=== PATIENT | female | born 1935 | race Caucasian/White ===

== ENCOUNTER 2016-11-11 02:19 | Inpatient (IN) | payer OTHER, MEDICARE ==
[2016-11-11] MEDS ORDERED: QUET1TAB7 PO (04:59)
[2016-11-11] MEDS ORDERED: AMLO10TA2 PO (04:59)
[2016-11-11] MEDS ORDERED: ASPI1TAB69 PO (04:59)
[2016-11-11] MEDS ORDERED: VALS1TAB70 PO (04:59)
[2016-11-11] MEDS ORDERED: PRIL20CA9 PO (04:59)
[2016-11-11] MEDS ORDERED: GABA100C4 PO (04:59)
[2016-11-11] MEDS ORDERED: MAGNESIUM HYDROXIDE SUSP 30 ML CUP PO PRN (06:00)
[2016-11-11] MEDS ORDERED: ALUMINUM/MAGNESIUM/SIMETH 30 ML CUP PO PRN (06:00)
[2016-11-11] MEDS ORDERED: diphenhydrAMINE HCL 50 MG/ML VIAL IM PRN (06:00)
[2016-11-11] MEDS ORDERED: diphenhydrAMINE HCL 50 MG CAP PO PRN (06:00)
[2016-11-11] MEDS ORDERED: ACETAMINOPHEN 325 MG TAB PO PRN (06:00)
[2016-11-11 06:26] VITALS: BP 147/62; PULSE 67; RESP 16; TEMP 98.4; O2SAT 94
[2016-11-11] MEDS ORDERED: hydrOXYzine HCL 50 MG TAB PO PRN (10:45)
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
[2016-11-11] MEDS: VALSARTAN 160 MG TAB PO SCH (12:08)
[2016-11-11] MEDS: PANTOPRAZOLE SOD 20 MG DELAYED RELEASE TAB PO SCH (12:08)
[2016-11-11] MEDS: ASPIRIN EC 81 MG TABEC PO SCH (12:09)
--- NOTE | 2016-11-11 13:42 | PD.CONS ---
HPI Service [facility] Consult Requested By Psychiatric team Reason for Consult Hypertension Primary Care Physician Unknown Diagnoses: History of Present Illness This is a 81-year-old female patient is currently alert and oriented to person only therefore information gathered from patient as well as prior computerized charting. Patient is a past medical history which includes cardiac myopathy, hypertension, dementia anxiety and depression. Patient is currently an inpatient psychiatric center with been consulted for assistance with management of hypertension. Patient has been restarted on her home blood pressure medications of Norvasc 10 and valsartan 325 daily. Patient's blood pressures in except will arrange for age. Patient appears to be in no acute distress although patient the [employer] INS[employer] working with patient reported that patient had an episode of large loose watery diarrhea. Per seen a there is no evidence of bright red blood or black to the stool. Patient is unable to elaborate or give any further information regarding how long or how often she's having liquid bowel movements. Patient reports mild abdominal pain more of a cramping. Denies nausea vomiting. Patient is unable to sit tell us whether she has been on antibiotics recently. Patient also denies shortness of breath chest pain. Review of Systems Except as stated in HPI: all other systems reviewed are Neg Past Family Social History Allergies: Coded Allergies: [place] (Verified Allergy, Unknown, 11/11/16) Sulfa (Verified Allergy, Unknown, 11/11/16) Uncoded Allergies: generic brand meds (Allergy, Unknown, 11/11/16) Past Medical History cardiomyopathy, hypertension, dementia anxiety and depression. Past Surgical History Appendectomy Reported Medications Quetiapine (Quetiapine Fumarate) 25 Mg Tab 12.5 Mg PO HS Valsartan 320 Mg Tab 320 Mg PO DAILY Prilosec (Omeprazole) 20 Mg Cap 20 Mg PO DAILY Gabapentin 100 Mg Cap 100 Mg PO HS Amlodipine (Amlodipine Besylate) 10 Mg Tab 10 Mg PO DAILY Aspirin 81 Mg Tabdr 81 Mg PO DAILY Active Ordered Medications Current Medications Medications (Trade) Dose Ordered Sig/Rai Route Start Time Stop Time Status Last Admin (Atarax) 50 mg Q6H PRN PO 11/11/16 06:00 (Benadryl) 50 mg Q6H PRN PO 11/11/16 06:00 (Benadryl Inj) 50 mg Q6H PRN IM 11/11/16 06:00 (Tylenol) 650 mg Q4H PRN PO 11/11/16 06:00 (Milk Of Magnesia Liq) 30 ml DAILY PRN PO 11/11/16 06:00 (Mag-Al Plus Susp Liq) 30 ml Q6H PRN PO 11/11/16 06:00 (Atarax) 50 mg Q6H PRN PO 11/11/16 10:45 (Norvasc) 10 mg DAILY PO 11/11/16 11:00 11/11/16 12:08 (Ecotrin Ec) 81 mg DAILY PO 11/11/16 11:00 11/11/16 12:09 (Neurontin) 100 mg HS PO 11/11/16 21:00 (Protonix) 20 mg DAILY PO 11/11/16 11:00 11/11/16 12:08 (Diovan) 320 mg DAILY PO 11/11/16 11:00 11/11/16 12:08 Family History Unable to obtain due to patient's mental status Social History Lives at home with there is no report of EtOH use tobacco use or illicit drug use Physical Exam Vital Signs Vital Signs Date Time Temp Pulse Resp B/P Pulse Ox O2 Delivery O2 Flow Rate FiO2 11/11/16 06:26 98.4 67 16 147/62 94 Physical Exam GENERAL: This is a well-nourished, well-developed patient, running around inpatient psychiatric unit does appear confused SKIN: No rashes, ecchymoses or lesions. Cool and dry. HEAD: Atraumatic. Normocephalic. No temporal or scalp tenderness. EYES:Extraocular motions intact. No scleral icterus. No injection or drainage. CARDIOVASCULAR: Regular rate and rhythm without murmurs, gallops, or rubs. RESPIRATORY: Clear to auscultation. Breath sounds equal bilaterally. No wheezes , rales, or rhonchi. GASTROINTESTINAL: Abdomen soft, mildly tender to palpation generalized abdomen, nondistended. MUSCULOSKELETAL: Extremities without clubbing, cyanosis, or edema. No joint tenderness, effusion, or edema noted. No calf tenderness. Negative Homans sign bilaterally. NEUROLOGICAL: Awake and alert. Motor and sensory grossly within normal limits. 4 -5 out of 5 muscle strength in all muscle groups. Confused alert and oriented to person only Result Diagram: 11/11/16 1513 11/11/16 1513 Assessment and Plan Assessment and Plan This is a 81-year-old female patient is currently alert and oriented to person only therefore information gathered from patient as well as prior computerized charting. Patient is a past medical history which includes cardiomyopathy, hypertension, dementia anxiety and depression. Patient is currently an inpatient psychiatric center with been consulted for assistance with management of hypertension. Patient has been restarted on her home blood pressure medications of Norvasc 10 and valsartan 320 mg daily. Patient's blood pressures in except will arrange for age. Patient appears to be in no acute distress although patient the [employer] working with patient reported that patient had an episode of large loose watery diarrhea. Hypertension - stable continue patient's home Norvasc 10 mg daily and valsartan 320 mg daily Monitor blood pressure trend Diarrhea CBC, BMP, magnesium and phosphorus ordered Stool for C. difficile Alzheimer's dementia behavior disturbance- management per psychiatric team DVT prophylaxis patient is ambulatory, low risk Plan of care discussed with patient and nursing Written by Sachi Snider, acting as scribe for Dr. Marsh on 11/11/16 at 14:19. Attending Statement The documentation accurately reflects the work performed [id number] by me on at 14:19. Sachi Snider Nov 11, 2016 13:42 Adriano Gonzalez MD Nov 12, 2016 16:01
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
[2016-11-11 15:24] LABS: AUTOMATED NEUTROPHIL # 7.2 TH/MM3 (1.8-7.7); BASOPHIL # 0.1 TH/MM3 (0-0.2); BASOPHIL % 0.7 % (0.0-2.0); EOSINOPHIL # 0.1 TH/MM3 (0-0.4); EOSINOPHIL % 0.9 % (0.0-4.0); HEMO FLAGS DIFF FINAL; LYMPH % 21.1 % (9.0-44.0); LYMPHOCYTE # 2.1 TH/MM3 (1.0-4.8); MEAN CELL VOLUME 84.6 FL (80.0-100.0); MEAN CORPUSCULAR HEMOGLOBIN 28.1 PG (27.0-34.0); MEAN CORPUSCULAR HGB CONC 33.1 % (32.0-36.0); MONO % 5.6 % (0.0-8.0); NEUT % 71.7 % (16.0-70.0); PLATELET COUNT 298 TH/MM3 (150-450); WHITE BLOOD COUNT 10.1 TH/MM3 (4.0-11.0)
[2016-11-11 15:48] LABS: BICARBONATE 28.1 MEQ/L (21.0-32.0); MAGNESIUM 2.1 MG/DL (1.5-2.5); POTASSIUM 3.4 MEQ/L (3.5-5.1)
[2016-11-11] MEDS: hydrOXYzine HCL 50 MG TAB PO PRN (17:58)
[2016-11-11 18:00] VITALS: BP 161/73; PULSE 77; RESP 18; TEMP 99.3; O2SAT 100
[2016-11-11] MEDS: GABAPENTIN 100 MG CAP PO SCH ×2 (20:52→20:53)
[2016-11-11] MEDS ORDERED: HALOPERIDOL LACTATE 5 MG/ML AMP IM ONE (21:30)
[2016-11-11] MEDS ORDERED: diphenhydrAMINE HCL 50 MG/ML VIAL IM STA (21:30)
[2016-11-12 06:18] VITALS: BP 161/69; PULSE 64; RESP 16; TEMP 99.2; O2SAT 97
[2016-11-12] MEDS: VALSARTAN 160 MG TAB PO SCH (08:08)
[2016-11-12] MEDS: ASPIRIN EC 81 MG TABEC PO SCH (08:08)
[2016-11-12] MEDS: PANTOPRAZOLE SOD 20 MG DELAYED RELEASE TAB PO SCH (08:08)
[2016-11-12] MEDS ORDERED: POTASSIUM CHLORIDE 20 MEQ CONTROLLED RELEASE TAB PO ONE (16:00)
[2016-11-12] MEDS: QUEtiapine FUMARATE 25 MG TAB PO SCH ×2 (16:00→21:25)
--- NOTE | 2016-11-12 16:02 | HHI.PR ---
Objective Vitals Vital Signs Date Time Temp Pulse Resp B/P Pulse Ox O2 Delivery O2 Flow Rate FiO2 11/12/16 06:18 99.2 64 16 161/69 97 11/11/16 18:00 99.3 77 18 161/73 100 Result Diagram: 11/11/16 1513 11/11/16 1513 Objective Remarks GENERAL: This is a well-nourished, well-developed patient, running around inpatient psychiatric unit does appear confused SKIN: No rashes, ecchymoses or lesions. Cool and dry. HEAD: Atraumatic. Normocephalic. No temporal or scalp tenderness. EYES:Extraocular motions intact. No scleral icterus. No injection or drainage. CARDIOVASCULAR: Regular rate and rhythm without murmurs, gallops, or rubs. RESPIRATORY: Clear to auscultation. Breath sounds equal bilaterally. No wheezes , rales, or rhonchi. GASTROINTESTINAL: Abdomen soft, mildly tender to palpation generalized abdomen, nondistended. MUSCULOSKELETAL: Extremities without clubbing, cyanosis, or edema. No joint tenderness, effusion, or edema noted. No calf tenderness. Negative Homans sign bilaterally. NEUROLOGICAL: Awake and alert. Motor and sensory grossly within normal limits. 4 -5 out of 5 muscle strength in all muscle groups. Confused alert and oriented to person only Medications and IVs Current Medications Medications (Trade) Dose Ordered Sig/Rai Route Start Time Stop Time Status Last Admin (Atarax) 50 mg Q6H PRN PO 11/11/16 06:00 11/11/16 17:58 (Tylenol) 650 mg Q4H PRN PO 11/11/16 06:00 (Milk Of Magnesia Liq) 30 ml DAILY PRN PO 11/11/16 06:00 (Mag-Al Plus Susp Liq) 30 ml Q6H PRN PO 11/11/16 06:00 (Norvasc) 10 mg DAILY PO 11/11/16 11:00 11/12/16 08:08 (Ecotrin Ec) 81 mg DAILY PO 11/11/16 11:00 11/12/16 08:08 (Neurontin) 100 mg HS PO 11/11/16 21:00 (Protonix) 20 mg DAILY PO 11/11/16 11:00 11/12/16 08:08 (Diovan) 320 mg DAILY PO 11/11/16 11:00 11/12/16 08:08 (SEROquel) 25 mg BID@16,22 PO 11/12/16 16:00 A/P Problem List: (1) Dementia of Alzheimer's type with behavioral disturbance ICD Code: G30.8 Status: Acute Plan: Management as per psychiatry (2) Uncontrolled hypertension ICD Code: I10 Status: Acute Plan: Patient's home antihypertensive medications. On amlodipine and Valsartan. Will start on cardura 2 mg daily. (3) Diarrhea ICD Code: R19.7 Status: Acute Plan: cdiff ordered and pending (4) ARIE (acute kidney injury) ICD Code: N17.9 Status: Acute Plan: Creatinine 1.35 - no previous labs to compare. encourage po intake (5) Hypokalemia ICD Code: E87.6 Status: Acute Plan: replete and monitor. Assessment and Plan . Problem Qualifiers (1) Dementia of Alzheimer's type with behavioral disturbance: Qualified Code: G30.8 - Alzheimer's disease of other onset with behavioral disturbance Adriano Gonzalez MD Nov 12, 2016 16:01
[2016-11-12] MEDS ORDERED: GLUCAGON 1 MG/ML VIAL OTHER PRN (16:15)
[2016-11-12] MEDS ORDERED: DEXTROSE 50% IN WATER 50 ML VIAL(D50) IV PUSH PRN (16:15)
[2016-11-12] MEDS: INSULIN ASPART SUPPLEMENTAL SCALE SQ SCH (21:00)
[2016-11-12] MEDS: GABAPENTIN 100 MG CAP PO SCH (21:20)
[2016-11-12] MEDS: hydrOXYzine HCL 50 MG TAB PO PRN (21:20)
[2016-11-12 22:50] VITALS: BP 169/84; PULSE 89; RESP 16; TEMP 98.9; O2SAT 93
[2016-11-13 06:00] VITALS: BP 141/76; PULSE 104; RESP 18; TEMP 99.8; O2SAT 95
[2016-11-13] MEDS: INSULIN ASPART SUPPLEMENTAL SCALE SQ SCH ×4 (06:31→21:00)
[2016-11-13] MEDS: hydrOXYzine HCL 50 MG TAB PO PRN (09:55)
[2016-11-13] MEDS: PANTOPRAZOLE SOD 20 MG DELAYED RELEASE TAB PO SCH (09:55)
[2016-11-13] MEDS: ASPIRIN EC 81 MG TABEC PO SCH (09:55)
[2016-11-13] MEDS: VALSARTAN 160 MG TAB PO SCH (09:58)
[2016-11-13 10:49] LABS: HEMOGLOBIN A1b 1.7 %; HEMOGLOBIN Ao 85.1 %; HEMOGLOBIN P3 3.8 %
--- NOTE | 2016-11-13 12:09 | PD.PN.STU ---
Objective Vitals Vital Signs Date Time Temp Pulse Resp B/P Pulse Ox O2 Delivery O2 Flow Rate FiO2 11/13/16 06:00 99.8 104 18 141/76 95 11/12/16 22:50 98.9 89 16 169/84 93 I/O 11/12/16 11/12/16 11/12/16 11/13/16 11/13/16 11/13/16 07:00 15:00 23:00 07:00 15:00 23:00 Intake Total 750 ml 0 ml Balance 750 ml 0 ml Intake Oral 750 ml 0 ml # Voids 3 1 1 Result Diagram: 11/11/16 1513 11/11/16 1513 Objective Remarks Patient pleasantly confused. Standing up in corner, mumbled speech, non coherent. A/P Assessment and Plan Patient stable on unit, no active concerns. Will continue to monitor. Working with on plan for dc if continues to be stable. Above progress note noted and agreed with. Patient seen by me on unit independently with independent note written Pauly Lizarraga Nov 13, 2016 11:49 Tboy Patton MD Nov 17, 2016 13:16
--- NOTE | 2016-11-13 12:44 | HHI.PYPN ---
Subjective Remarks This is a late entry progress note for patient that has been seen on 11/12/16 and about 1340 hrs. At that time patient was seen in the day room with floor staff. Patient continues are clearly disorganized and confused though pleasant with me, did not remember me from prior visit. She was compliant medication at that time Review of Systems Except as stated in HPI: all other systems reviewed are Neg Objective Alert: Yes [place]: Person Mood: Anxious, Calm Affect: Euthymic, Restricted Memory Intact: Comment Hallucinations: Other (denies) Delusions: No Delusion Type: Other (mildly vigilant) Suicidal: Ideation (denies) Homicidal: Ideation (denies) Insight/Judgement Very poor Labs Test 11/13/16 07:19 Hemoglobin A1c 5.8 % Vitals/IOs Vital Signs Date Time Temp Pulse Resp B/P Pulse Ox O2 Delivery O2 Flow Rate FiO2 11/13/16 06:00 99.8 104 18 141/76 95 Intake and Output 11/12/16 11/12/16 11/13/16 08:00 16:00 00:00 Intake Total 750 ml Balance 750 ml Assessment & Plan Problem List: (1) Dementia of Alzheimer's type with behavioral disturbance ICD Code: G30.8 Assessment & Plan Estimated LOS: days patient continues quite demented and confused, though no significant behavioral problem. Compliant medication Justification for Cont. Inpt. At this time patient would significantly decompensate if placed at a lower level of care Discharge Planning To be determined Request HC Surrog/Guard Advoc?: Yes Problem Qualifiers (1) Dementia of Alzheimer's type with behavioral disturbance: Qualified Code: G30.8 - Alzheimer's disease of other onset with behavioral disturbance Toby Patton MD Nov 13, 2016 12:44
--- NOTE | 2016-11-13 13:57 | HHI.PYPN ---
Subjective Remarks Patient seen today in day room with nurse Lorena and medical student Lashanda, chart review, patient continues markedly confused and disoriented now frequently getting out of Any chair to rearrange her blankets on the Any chair. Patient continues to need significant infrequent interventions and assistance, compliant medications Review of Systems Except as stated in HPI: all other systems reviewed are Neg Objective Alert: Yes [place]: Person Mood: Anxious, Calm Affect: Euthymic, Restricted Memory Intact: Comment Hallucinations: Other (denies) Delusions: No Delusion Type: Other (mildly vigilant) Suicidal: Ideation (denies) Homicidal: Ideation (denies) Insight/Judgement Very poor Labs Test 11/13/16 07:19 Hemoglobin A1c 5.8 % Vitals/IOs Vital Signs Date Time Temp Pulse Resp B/P Pulse Ox O2 Delivery O2 Flow Rate FiO2 11/13/16 06:00 99.8 104 18 141/76 95 Intake and Output 11/12/16 11/12/16 11/13/16 08:00 16:00 00:00 Intake Total 750 ml Balance 750 ml Assessment & Plan Problem List: (1) Dementia of Alzheimer's type with behavioral disturbance ICD Code: G30.8 Assessment & Plan Patient continues significantly disorganized and demented, compliant medications , no needing significant interventions is no other significant behavioral problems at this time Justification for Cont. Inpt. At this time patient would significantly decompensate if placed in the lower level of care Discharge Planning To be determined Request HC Surrog/Guard Advoc?: Yes Problem Qualifiers (1) Dementia of Alzheimer's type with behavioral disturbance: Qualified Code: G30.8 - Alzheimer's disease of other onset with behavioral disturbance Toby Patton MD Nov 13, 2016 13:57
[2016-11-13] MEDS: QUEtiapine FUMARATE 25 MG TAB PO SCH ×2 (16:00→21:09)
[2016-11-13 18:12] VITALS: BP 131/75; PULSE 103; RESP 18; TEMP 99; O2SAT 95
[2016-11-13] MEDS: GABAPENTIN 100 MG CAP PO SCH (21:09)
[2016-11-14] MEDS: INSULIN ASPART SUPPLEMENTAL SCALE SQ SCH ×4 (05:55→21:27)
[2016-11-14 06:36] VITALS: BP 142/70; PULSE 94; RESP 16; TEMP 97.1; O2SAT 97
[2016-11-14] MEDS: VALSARTAN 160 MG TAB PO SCH (09:16)
[2016-11-14] MEDS: PANTOPRAZOLE SOD 20 MG DELAYED RELEASE TAB PO SCH (09:16)
[2016-11-14] MEDS: ASPIRIN EC 81 MG TABEC PO SCH (09:16)
--- NOTE | 2016-11-14 12:20 | PD.PN.STU ---
Subjective Remarks Patient seen today in group room sitting comfortably in chair. Chart reviewed, patient continues markedly confused and disoriented. Continuously purposeless movement with rearranging her sheets on lap. Continues to need significant infrequent interventions and assistance, compliant with medications. Objective Vitals Vital Signs Date Time Temp Pulse Resp B/P Pulse Ox O2 Delivery O2 Flow Rate FiO2 11/14/16 06:36 97.1 94 16 142/70 97 11/13/16 18:19 11/13/16 18:12 99.0 103 18 131/75 95 I/O 11/13/16 11/13/16 11/13/16 11/14/16 11/14/16 11/14/16 07:00 15:00 23:00 07:00 15:00 23:00 Intake Total 360 ml 480 ml 0 ml Balance 360 ml 480 ml 0 ml Intake Oral 360 ml 480 ml 0 ml # Voids 3 1 1 Result Diagram: 11/11/16 1513 11/11/16 1513 Objective Remarks Alert: Yes [place]: Person Mood: Anxious, Calm Affect: Euthymic, Restricted Memory Intact: Comment Hallucinations: Other (denies) Delusions: No Delusion Type: Other (mildly vigilant) Suicidal: Ideation (denies) Homicidal: Ideation (denies) Insight/Judgement Very poor Medications and IVs Compliant with medications A/P Assessment and Plan Problem List: (1) Dementia of Alzheimer's type with behavioral disturbance ICD Code: G30.8 Patient continues significantly disorganized and demented, compliant medications , no needing significant interventions is no other significant behavioral problems at this time Justification for Cont. Inpt. At this time patient would significantly decompensate if placed in the lower level of care Above progress note reviewed and noted and agreed with. Patient seen independently by me with independent note written Discharge Planning To be determined Pauly Lizarraga Nov 14, 2016 12:20 Toby Patton MD Nov 17, 2016 13:14
--- NOTE | 2016-11-14 13:15 | HHI.PYPN ---
Subjective Remarks Patient seen in day room with nurse Lorena, patient calm pleasant with me continues diffusely confused, but no significant behavioral problems does need frequent interventions, compliant medications Review of Systems Except as stated in HPI: all other systems reviewed are Neg Objective Alert: Yes [place]: Person Mood: Anxious, Calm Affect: Euthymic, Restricted Memory Intact: Comment Hallucinations: Other (denies) Delusions: No Delusion Type: Other (mildly vigilant) Suicidal: Ideation (denies) Homicidal: Ideation (denies) Insight/Judgement Very poor Vitals/IOs Vital Signs Date Time Temp Pulse Resp B/P Pulse Ox O2 Delivery O2 Flow Rate FiO2 11/14/16 06:36 97.1 94 16 142/70 97 Intake and Output 11/13/16 11/13/16 11/14/16 08:00 16:00 00:00 Intake Total 0 ml 360 ml 480 ml Balance 0 ml 360 ml 480 ml Assessment & Plan Problem List: (1) Dementia of Alzheimer's type with behavioral disturbance ICD Code: G30.8 Assessment & Plan Estimated LOS: days patient continues severely demented though somewhat pleasant with me. Compliant medications. Continues to need frequent interventions Justification for Cont. Inpt. This time patient will decompensate if placed in a lower level of care Discharge Planning To be determined Request HC Surrog/Guard Advoc?: Yes Problem Qualifiers (1) Dementia of Alzheimer's type with behavioral disturbance: Qualified Code: G30.8 - Alzheimer's disease of other onset with behavioral disturbance Toby Patton MD Nov 14, 2016 13:15
--- NOTE | 2016-11-14 15:07 | HHI.PR ---
Subjective Remarks Follow-up visit hypertension, cardiac myopathy. Patient seen today. Awake alert and confused. Occasionally follows commands. Unable to have intelligible conversation. Denies chest pain, palpitations, dizziness, headaches, shortness of breath, dyspnea. Denies fevers, chills, nausea, vomiting, diarrhea. Objective Vitals Vital Signs Date Time Temp Pulse Resp B/P Pulse Ox O2 Delivery O2 Flow Rate FiO2 11/14/16 06:36 97.1 94 16 142/70 97 11/13/16 18:19 11/13/16 18:12 99.0 103 18 131/75 95 I/O 11/13/16 11/13/16 11/13/16 11/14/16 11/14/16 11/14/16 07:00 15:00 23:00 07:00 15:00 23:00 Intake Total 360 ml 480 ml 0 ml 240 ml Balance 360 ml 480 ml 0 ml 240 ml Intake Oral 360 ml 480 ml 0 ml 240 ml # Voids 3 1 1 Result Diagram: 11/11/16 1513 11/11/16 1513 Objective Remarks GENERAL: This is a well-nourished, well-developed patient, in no apparent distress. HEENT: Normocephalic. Pupils equal round and reactive. Nose without bleeding. Airway patent. NECK: Trachea midline. No JVD. Supple. CARDIOVASCULAR: Regular rate and rhythm without murmurs, gallops, or rubs. RESPIRATORY: Clear to auscultation. Breath sounds equal bilaterally. No wheezes , rales, or rhonchi. GASTROINTESTINAL: Abdomen soft, non-tender, nondistended. Bowel Sounds normoactive x4. MUSCULOSKELETAL: Extremities without clubbing, cyanosis, or edema. NEUROLOGICAL: Awake and alert. Confuse. FORDE. Normal speech. A/P Problem List: (1) Dementia of Alzheimer's type with behavioral disturbance ICD Code: G30.8 Status: Acute (2) Uncontrolled hypertension ICD Code: I10 Status: Acute (3) Diarrhea ICD Code: R19.7 Status: Acute (4) ARIE (acute kidney injury) ICD Code: N17.9 Status: Acute (5) Hypokalemia ICD Code: E87.6 Status: Acute Assessment and Plan This is a 81-year-old female patient is currently alert and oriented to person only therefore information gathered from patient as well as prior computerized charting. Patient is a past medical history which includes cardiomyopathy, hypertension, dementia anxiety and depression. Patient is currently an inpatient psychiatric center with been consulted for assistance with management of hypertension. Patient has been restarted on her home blood pressure medications of Norvasc 10 and valsartan 320 mg daily. Patient's blood pressures in except will arrange for age. Patient appears to be in no acute distress although patient the COSTUME TECHNICIAN working with patient reported that patient had an episode of large loose watery diarrhea. Cardiomyopathy Hypertension - uncontrolled continue patient's home Norvasc 10 mg daily and valsartan 320 mg daily. ASA 81 mg Add carvedilol 6.125 patient noted to have elevated heart rate and BP on trend Continue to monitor BP trend Diarrhea - resolved - Stool for C. difficile was never sent. No diarrhea reported on exam. Alzheimer's dementia behavior disturbance- management per psychiatric team DVT prophylaxis patient is ambulatory, low risk Written by Ramona Zavala, acting as scribe for Dr. Carrington on 11/14/16 at 16:10. The documentation accurately reflects the work performed [id number] by me on at 16:10 Problem Qualifiers (1) Dementia of Alzheimer's type with behavioral disturbance: Qualified Code: G30.8 - Alzheimer's disease of other onset with behavioral disturbance Ramona Petit Nov 14, 2016 15:07 Rosendo Carrington DO Nov 14, 2016 22:45
[2016-11-14] MEDS: QUEtiapine FUMARATE 25 MG TAB PO SCH ×2 (17:00→21:29)
[2016-11-14 20:10] VITALS: BP 138/64; PULSE 100; RESP 17; TEMP 98.8; O2SAT 95
[2016-11-14] MEDS: GABAPENTIN 100 MG CAP PO SCH (21:27)
[2016-11-14] MEDS: CARVEDILOL 6.25 MG TAB PO SCH (21:27)
[2016-11-15] MEDS: INSULIN ASPART SUPPLEMENTAL SCALE SQ SCH ×4 (06:15→20:24)
[2016-11-15 06:28] VITALS: BP 177/84; PULSE 89; RESP 18; TEMP 98.3; O2SAT 93
[2016-11-15 08:45] LABS: AUTOMATED NEUTROPHIL # 6.7 TH/MM3 (1.8-7.7); BASOPHIL # 0.1 TH/MM3 (0-0.2); BASOPHIL % 0.6 % (0.0-2.0); EOSINOPHIL # 0.2 TH/MM3 (0-0.4); EOSINOPHIL % 2.4 % (0.0-4.0); HEMATOCRIT 33.7 % (35.0-46.0); HEMO FLAGS DIFF FINAL; LYMPH % 17.8 % (9.0-44.0); LYMPHOCYTE # 1.7 TH/MM3 (1.0-4.8); MEAN CELL VOLUME 84.4 FL (80.0-100.0); MEAN CORPUSCULAR HEMOGLOBIN 28.7 PG (27.0-34.0); MONO % 6.9 % (0.0-8.0); NEUT % 72.3 % (16.0-70.0); PLATELET COUNT 261 TH/MM3 (150-450); RED BLOOD COUNT 3.99 MIL/MM3 (4.00-5.30); RED CELL DISTRIBUTION WIDTH 14.2 % (11.6-17.2); WHITE BLOOD COUNT 9.3 TH/MM3 (4.0-11.0)
[2016-11-15 09:10] LABS: ANION GAP 12 MEQ/L (5-15); AST (GOT) 31 U/L (15-37); BICARBONATE 25.9 MEQ/L (21.0-32.0); BLOOD UREA NITROGEN 21 MG/DL (7-18); CHLORIDE 106 MEQ/L (98-107); GLOMERULAR FILTRATION RATE 40 ML/MIN (>89); POTASSIUM 3.3 MEQ/L (3.5-5.1); SODIUM (NA) 144 MEQ/L (136-145)
[2016-11-15 09:13] LABS: ALKALINE PHOSPHATASE 79 U/L (45-117); ALT (GPT) 22 U/L (10-53); TOTAL BILIRUBIN ADULT 0.7 MG/DL (0.2-1.0)
[2016-11-15] MEDS: ASPIRIN EC 81 MG TABEC PO SCH (09:25)
[2016-11-15] MEDS: VALSARTAN 160 MG TAB PO SCH (09:25)
[2016-11-15] MEDS: PANTOPRAZOLE SOD 20 MG DELAYED RELEASE TAB PO SCH (09:26)
[2016-11-15] MEDS: CARVEDILOL 6.25 MG TAB PO SCH ×2 (09:26→21:35)
[2016-11-15] MEDS: QUEtiapine FUMARATE 25 MG TAB PO SCH ×2 (16:00→21:38)
--- NOTE | 2016-11-15 17:24 | HHI.PR ---
Subjective Remarks Follow-up visit hypertension, cardiac myopathy. Patient seen today. Awake alert and confused. Occasionally follows commands. Unable to have intelligible conversation. Denies chest pain, palpitations, dizziness, headaches, shortness of breath, dyspnea. Denies fevers, chills, nausea, vomiting, diarrhea. Continues to have episodes of hypertension and tachycardia earlier today as reported by nurse. Objective Vitals Vital Signs Date Time Temp Pulse Resp B/P Pulse Ox O2 Delivery O2 Flow Rate FiO2 11/15/16 06:28 98.3 89 18 177/84 93 11/14/16 20:10 98.8 100 17 138/64 95 I/O 11/14/16 11/14/16 11/14/16 11/15/16 11/15/16 11/15/16 07:00 15:00 23:00 07:00 15:00 23:00 Intake Total 0 ml 240 ml 0 ml 120 ml Balance 0 ml 240 ml 0 ml 120 ml Intake Oral 0 ml 240 ml 0 ml 120 ml # Voids 1 3 Result Diagram: 11/15/1671911/15/16719 Objective Remarks GENERAL: This is a well-nourished, well-developed patient, in no apparent distress. HEENT: Normocephalic. Pupils equal round and reactive. Nose without bleeding. Airway patent. NECK: Trachea midline. No JVD. Supple. CARDIOVASCULAR: Regular rate and rhythm without murmurs, gallops, or rubs. RESPIRATORY: Clear to auscultation. Breath sounds equal bilaterally. No wheezes , rales, or rhonchi. GASTROINTESTINAL: Abdomen soft, non-tender, nondistended. Bowel Sounds normoactive x4. MUSCULOSKELETAL: Extremities without clubbing, cyanosis, or edema. NEUROLOGICAL: Awake and alert. Confuse. FORDE. Normal speech. A/P Problem List: (1) Dementia of Alzheimer's type with behavioral disturbance ICD Code: G30.8 Status: Acute (2) Uncontrolled hypertension ICD Code: I10 Status: Acute (3) Diarrhea ICD Code: R19.7 Status: Acute (4) ARIE (acute kidney injury) ICD Code: N17.9 Status: Acute (5) Hypokalemia ICD Code: E87.6 Status: Acute Assessment and Plan This is a 81-year-old female patient is currently alert and oriented to person only therefore information gathered from patient as well as prior computerized charting. Patient is a past medical history which includes cardiomyopathy, hypertension, dementia anxiety and depression. Patient is currently an inpatient psychiatric center with been consulted for assistance with management of hypertension. Patient has been restarted on her home blood pressure medications of Norvasc 10 and valsartan 320 mg daily. Patient's blood pressures in except will arrange for age. Patient appears to be in no acute distress although patient the PECAN SHELLER working with patient reported that patient had an episode of large loose watery diarrhea. Cardiomyopathy Hypertension - uncontrolled continue patient's home Norvasc 10 mg daily and valsartan 320 mg daily. ASA 81 mg carvedilol 6.125 patient noted to have elevated heart rate and BP on trend. On exam patient was seen. Blood pressure is 146/82, heart rate 75 Continue to monitor BP trend. Continue current carvedilol, Norvasc dose. Diarrhea - resolved - Stool for C. difficile was never sent. No diarrhea reported on exam. Alzheimer's dementia behavior disturbance- management per psychiatric team DVT prophylaxis patient is ambulatory, low risk Full code Discussed with patient, nursing Written by Ramona Zavala, acting as scribe for Dr. Carrington on 11/15/16 at 14:53. The documentation accurately reflects the work performed [id number] by me on at 14:53. Problem Qualifiers (1) Dementia of Alzheimer's type with behavioral disturbance: Qualified Code: G30.8 - Alzheimer's disease of other onset with behavioral disturbance Ramona Petit Nov 15, 2016 17:24 Rosendo Carrington DO Nov 16, 2016 00:59
--- NOTE | 2016-11-15 19:36 | HHI.PYPN ---
Subjective Remarks Pt seen and discussed with staff. Pt remains perseverative and impulsive, but has been a bit calmer and more cooperative today. Compliant with medications. No agitation. Objective Alert: Yes [place]: Person Mood: Calm Affect: Restricted Memory Intact: Comment (severe impairments) Hallucinations: Other (denies) Delusions: No Delusion Type: Other (mildly vigilant) Suicidal: Ideation (denies) Homicidal: Ideation (denies) Insight/Judgement poor Labs Test 11/15/16 07:20 White Blood Count 9.3 TH/MM3 Red Blood Count 3.99 MIL/MM3 Hemoglobin 11.4 GM/DL Hematocrit 33.7 % Mean Corpuscular Volume 84.4 FL Mean Corpuscular Hemoglobin 28.7 PG Mean Corpuscular Hemoglobin 34.0 % Concent Red Cell Distribution Width 14.2 % Platelet Count 261 TH/MM3 Mean Platelet Volume 9.7 FL Neutrophils (%) (Auto) 72.3 % Lymphocytes (%) (Auto) 17.8 % Monocytes (%) (Auto) 6.9 % Eosinophils (%) (Auto) 2.4 % Basophils (%) (Auto) 0.6 % Neutrophils # (Auto) 6.7 TH/MM3 Lymphocytes # (Auto) 1.7 TH/MM3 Monocytes # (Auto) 0.6 TH/MM3 Eosinophils # (Auto) 0.2 TH/MM3 Basophils # (Auto) 0.1 TH/MM3 CBC Comment DIFF FINAL Differential Comment Sodium Level 144 MEQ/L Potassium Level 3.3 MEQ/L Chloride Level 106 MEQ/L Carbon Dioxide Level 25.9 MEQ/L Anion Gap 12 MEQ/L Blood Urea Nitrogen 21 MG/DL Creatinine 1.29 MG/DL Estimat Glomerular Filtration 40 ML/MIN Rate Random Glucose 118 MG/DL Calcium Level 9.2 MG/DL Total Bilirubin 0.7 MG/DL Aspartate Amino Transf 31 U/L (AST/SGOT) Alanine Aminotransferase 22 U/L (ALT/SGPT) Alkaline Phosphatase 79 U/L Total Protein 7.2 GM/DL Albumin 3.6 GM/DL Vitals/IOs Vital Signs Date Time Temp Pulse Resp B/P Pulse Ox O2 Delivery O2 Flow Rate FiO2 11/15/16 06:28 98.3 89 18 177/84 93 Intake and Output 11/14/16 11/14/16 11/15/16 08:00 16:00 00:00 Intake Total 0 ml 240 ml 0 ml Balance 0 ml 240 ml 0 ml Assessment & Plan Problem List: (1) Dementia of Alzheimer's type with behavioral disturbance ICD Code: G30.8 Assessment & Plan Continue current tx plan. Estimated LOS: days Justification for Cont. Inpt. risk of decompensation Request HC Surrog/Guard Advoc?: Yes Problem Qualifiers (1) Dementia of Alzheimer's type with behavioral disturbance: Qualified Code: G30.8 - Alzheimer's disease of other onset with behavioral disturbance Ana Lilia Maki MD Nov 15, 2016 19:36
[2016-11-15] MEDS: GABAPENTIN 100 MG CAP PO SCH (21:35)
[2016-11-15 22:00] VITALS: BP 149/88; PULSE 92; RESP 18; TEMP 98.6; O2SAT 93
[2016-11-16 05:38] VITALS: BP 140/82; PULSE 82; RESP 16; TEMP 98; O2SAT 94
[2016-11-16] MEDS: INSULIN ASPART SUPPLEMENTAL SCALE SQ SCH (06:15)
[2016-11-16] MEDS: PANTOPRAZOLE SOD 20 MG DELAYED RELEASE TAB PO SCH (09:57)
[2016-11-16] MEDS: ASPIRIN EC 81 MG TABEC PO SCH (09:57)
[2016-11-16] MEDS: VALSARTAN 160 MG TAB PO SCH (09:57)
[2016-11-16] MEDS: CARVEDILOL 6.25 MG TAB PO SCH ×2 (09:57→21:29)
--- NOTE | 2016-11-16 12:36 | HHI.PYPN ---
Subjective Remarks Pt seen and discussed with staff. Pt has been less impulsive and more calm today. No aggression. Compliant wiht medications. Objective Alert: Yes [place]: Person Mood: Calm Affect: Restricted Memory Intact: Comment (severe impairments) Hallucinations: Other (denies) Delusions: No Delusion Type: Other (mildly vigilant) Suicidal: Ideation (denies) Homicidal: Ideation (denies) Insight/Judgement poor Vitals/IOs Vital Signs Date Time Temp Pulse Resp B/P Pulse Ox O2 Delivery O2 Flow Rate FiO2 11/16/16 05:38 98.0 82 16 140/82 94 Intake and Output 11/15/16 11/15/16 11/16/16 08:00 16:00 00:00 Intake Total 120 ml 960 ml Balance 120 ml 960 ml Assessment & Plan Problem List: (1) Dementia of Alzheimer's type with behavioral disturbance ICD Code: G30.8 Assessment & Plan Continue current tx plan. Estimated LOS: days Justification for Cont. Inpt. risk of decompensation. Request HC Surrog/Guard Advoc?: Yes Problem Qualifiers (1) Dementia of Alzheimer's type with behavioral disturbance: Qualified Code: G30.8 - Alzheimer's disease of other onset with behavioral disturbance Ana Lilia Maki MD Nov 16, 2016 12:36
[2016-11-16] MEDS: QUEtiapine FUMARATE 25 MG TAB PO SCH ×2 (16:00→21:51)
[2016-11-16 18:00] VITALS: BP 132/66; PULSE 74; RESP 18; TEMP 98.7; O2SAT 97
[2016-11-16] MEDS: GABAPENTIN 100 MG CAP PO SCH (21:29)
[2016-11-17 05:00] VITALS: BP 131/64; PULSE 57; RESP 18; TEMP 98.3; O2SAT 93
[2016-11-17] MEDS: ASPIRIN EC 81 MG TABEC PO SCH (09:52)
[2016-11-17] MEDS: CARVEDILOL 6.25 MG TAB PO SCH (09:52)
[2016-11-17] MEDS: PANTOPRAZOLE SOD 20 MG DELAYED RELEASE TAB PO SCH (09:52)
[2016-11-17] MEDS: VALSARTAN 160 MG TAB PO SCH (09:52)
[2016-11-17] MEDS ORDERED: PANT20 PO (13:31)
[2016-11-17] MEDS ORDERED: DIOV160T6 PO (13:31)
[2016-11-17] MEDS ORDERED: QUET1TAB7 PO (13:31)
[2016-11-17] MEDS ORDERED: GABA100C4 PO (13:31)
[2016-11-17] MEDS ORDERED: AMLO10 PO (13:31)
[2016-11-17] MEDS ORDERED: ASPI81TA11 PO (13:31)
[2016-11-17] MEDS ORDERED: CARV6.25 PO (13:31)
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
--- NOTE | 2016-11-17 15:46 | HHI.PR ---
Subjective Remarks Follow-up visit hypertension, cardiac myopathy. Patient seen today. Awake alert and confused. Occasionally follows commands. Unable to have intelligible conversation. Denies chest pain, palpitations, dizziness, headaches, shortness of breath, dyspnea. Denies fevers, chills, nausea, vomiting, diarrhea. No acute issues overnight as per nursing. Objective Vitals Vital Signs Date Time Temp Pulse Resp B/P Pulse Ox O2 Delivery O2 Flow Rate FiO2 11/17/16 05:00 98.3 57 18 131/64 93 11/16/16 18:00 98.7 74 18 132/66 97 I/O 11/16/16 11/16/16 11/16/16 11/17/16 11/17/16 11/17/16 07:00 15:00 23:00 07:00 15:00 23:00 Intake Total 0 ml 720 ml 480 ml Balance 0 ml 720 ml 480 ml Intake Oral 0 ml 720 ml 480 ml # Voids 1 2 4 Result Diagram: 11/15/1671911/15/16 0720 Objective Remarks GENERAL: This is a well-nourished, well-developed patient, in no apparent distress. HEENT: Normocephalic. Pupils equal round and reactive. Nose without bleeding. Airway patent. NECK: Trachea midline. No JVD. Supple. CARDIOVASCULAR: Regular rate and rhythm without murmurs, gallops, or rubs. RESPIRATORY: Clear to auscultation. Breath sounds equal bilaterally. No wheezes , rales, or rhonchi. GASTROINTESTINAL: Abdomen soft, non-tender, nondistended. Bowel Sounds normoactive x4. MUSCULOSKELETAL: Extremities without clubbing, cyanosis, or edema. NEUROLOGICAL: Awake and alert. Confuse. FORDE. Normal speech. A/P Problem List: (1) Dementia of Alzheimer's type with behavioral disturbance ICD Code: G30.8 Status: Acute (2) Uncontrolled hypertension ICD Code: I10 Status: Acute (3) Diarrhea ICD Code: R19.7 Status: Acute (4) ARIE (acute kidney injury) ICD Code: N17.9 Status: Acute (5) Hypokalemia ICD Code: E87.6 Status: Acute Assessment and Plan This is a 81-year-old female patient is currently alert and oriented to person only therefore information gathered from patient as well as prior computerized charting. Patient is a past medical history which includes cardiomyopathy, hypertension, dementia anxiety and depression. Patient is currently an inpatient psychiatric center with been consulted for assistance with management of hypertension. Patient has been restarted on her home blood pressure medications of Norvasc 10 and valsartan 320 mg daily. Patient's blood pressures in except will arrange for age. Patient appears to be in no acute distress although patient the FLORICULTURE PROFESSOR working with patient reported that patient had an episode of large loose watery diarrhea. Cardiomyopathy Hypertension - uncontrolled continue patient's home Norvasc 10 mg daily and valsartan 320 mg daily. ASA 81 mg carvedilol 6.125 BID patient noted to have elevated heart rate and BP on trend. Improved. Diarrhea - resolved - Stool for C. difficile was never sent. No diarrhea reported on exam. Alzheimer's dementia behavior disturbance- management per psychiatric team DVT prophylaxis patient is ambulatory, low risk Full code Discussed with patient, nursing Stable from Hospitalist standpoint. We will sign off. Reconsult as needed. Written by Ramona Zavala, acting as scribe for on 11/17/16 at 13:40. All or portions of this note were transcribed by alayna Zavala NP. I , Dr. Nemesio Carrington personally performed the history, physical exam, and medical decision making; and confirmed the accuracy of the information in the transcribed note. Authenticated by Dr. Nemesio Carrington on 11/17/16 at 13:40. Problem Qualifiers (1) Dementia of Alzheimer's type with behavioral disturbance: Qualified Code: G30.8 - Alzheimer's disease of other onset with behavioral disturbance Ramona Petit Nov 17, 2016 15:46 Rosendo Carrington DO Nov 17, 2016 23:58
== END 2016-11-17 15:15 | disposition home health service (06) | DRG 57 ==
LOC: H250 03:50
PROVIDERS: ADMIT Psychiatry & Neurology Psychiatry; ATTEND Psychiatry & Neurology Psychiatry
DX: G30.8 Other Alzheimer's disease (principal); F02.81 Dementia in other diseases classified elsewhere, unspecified severity, with behavioral disturbance; N17.9 Acute kidney failure, unspecified; I42.9 Cardiomyopathy, unspecified; I10 Essential (primary) hypertension; F32.9 Major depressive disorder, single episode, unspecified; F41.9 Anxiety disorder, unspecified; R19.7 Diarrhea, unspecified; E87.6 Hypokalemia; R00.0 Tachycardia, unspecified; Z88.2 Allergy status to sulfonamides; Z91.018 Allergy to other foods
CPT/HCPCS: 80048; 80053; 82948; 83036; 83735; 84100; 85025; J1200; J1630; J1815